=== PATIENT | female | born 2000 | race Caucasian/White ===

== ENCOUNTER 2021-06-18 15:07 | Emergency (ER) | payer SELFPAY | END 2021-06-18 16:06 | disposition left against medical advice (07) | LOC: HO.ED 16:06 | PROVIDERS: Emergency Provider Emergency Medicine | DX: R21 Rash and other nonspecific skin eruption (principal) ==

== ENCOUNTER 2022-05-27 12:30 | Emergency (ER) | payer OTHER, SELFPAY ==
[2022-05-27 12:33] VITALS: BP 129/83; PULSE 111; RESP 18; TEMP 36.9; O2SAT 98; BMI 36.3
[2022-05-27 12:53] LABS: MANUAL DIFF FLAG NO
[2022-05-27 12:57] LABS: Basophils Absolute Auto 0.1 X10*3/uL (0.0-0.2); Basophils Percent Auto 0.3 % (0-2); Eosinophils Percent Auto 0.1 % (0-4); Hematocrit 40.3 % (37.0-47.0); Hemoglobin 13.4 g/dl (12.0-16.0); Imm Gran Abs Auto 0.05 X10*3/uL (0.00-0.03); Imm Gran Pct Auto 0.3 % (0.0-0.4); Lymphocytes Absolute Auto 1.7 X10*3/uL (1.2-4.9); Lymphocytes Percent Auto 10.5 % (20-40); Mean Corpuscular HGB Conc 33.3 g/dl (31.0-35.0); Mean Corpuscular Hemoglobin 28.9 pg (27.0-33.0); Mean Platelet Volume 10.3 fL (9.4-12.3); Monocytes Absolute Auto 0.8 X10*3/uL (0.1-1.2); Monocytes Percent Auto 4.8 % (2-11); Neutrophils Absolute Auto 13.8 x10*3/uL (2.0-8.3); Platelet Count 350 X10*3/uL (160-400); Red Blood Count 4.63 X10*6/uL (4.20-5.50); White Blood Count 16.4 X10*3/uL (4.8-10.8)
[2022-05-27 12:59] LABS: Appearance Urine Clear; Color Urine Yellow; Glucose Urine UA Negative (Negative); Leukocyte Esterase Urine Negative (Negative); Nitrite Urine Negative (Negative); PH 5.5 (5.0-9.0); Specific Gravity - Urine 1.025 (1.005-1.025); Urine Blood Trace (Negative); Urine Ketones Negative (Negative); Urine Protein Negative (Neg-Trace)
[2022-05-27 13:01] LABS: Bacteria Urine None Seen (None Seen); Hyaline Casts Urine 0-2 /LPF (0-2); Squamous Epithelial Cell Urine 0-2 /HPF (0-2); WBC Urine 0-5 /HPF (0-5)
[2022-05-27 13:02] LABS: UPreg QC Valid YES; Urine Pregnancy NEGATIVE (NEGATIVE)
[2022-05-27 13:22] LABS: Anion Gap 16 (12-20); Blood Urea Nitrogen 9 mg/dL (9-16); Calcium 9.6 mg/dL (8.4-10.2); Carbon Dioxide 21 mmol/L (22-29); Chloride 106 mmol/L (96-108); Estimated Glomerular Filt Rate > 60; Glucose Random 103 mg/dL (60-115); Potassium 4.1 mmol/L (3.3-5.1); Sodium 139 mmol/L (135-145)
== END 2022-05-27 15:33 | disposition left against medical advice (07) ==
LOC: HO.ED 15:31
PROVIDERS: Emergency Provider Emergency Medicine
DX: R10.11 Right upper quadrant pain (principal); Z79.899 Other long term (current) drug therapy
CPT/HCPCS: 36415; 80048; 81001; 81025; 85025; 99282; 99283

== ENCOUNTER 2024-01-31 18:19 | Inpatient (IN) | payer OTHER, SELFPAY ==
--- NOTE | 2024-01-31 18:41 | ECG_ITS ---
Test Reason : OVERDOSE Blood Pressure : / mmHG Vent. Rate : 090 BPM Atrial Rate : 090 BPM P-R Int : 130 ms QRS Dur : 072 ms QT Int : 354 ms P-R-T Axes : 023 021 013 degrees QTc Int : 433 ms Normal sinus rhythm Normal ECG No previous ECGs available Referred By: Miky Cuevas Electronically Signed By:Todd Matt
[2024-01-31 19:17] VITALS: BP 126/76; BP 128/65; PULSE 120; PULSE 98; RESP 16; TEMP 37.2; O2SAT 96; O2SAT 98; BMI 37.4
[2024-01-31 19:27] LABS: MANUAL DIFF FLAG NO
--- NOTE | 2024-01-31 19:30 | PC.NURSE ---
pt difficult stick 2x attempt for iv unable to. charge gang weigher tavia aware and attempting.
[2024-01-31 19:32] LABS: Basophils Percent Auto 0.3 % (0-2); Eosinophils Percent Auto 0.1 % (0-4); Hematocrit 35.7 % (37.0-47.0); Hemoglobin 12.3 g/dl (12.0-16.0); Imm Gran Abs Auto 0.04 X10*3/uL (0.00-0.03); Imm Gran Pct Auto 0.4 % (0.0-0.4); Lymphocytes Absolute Auto 2.5 X10*3/uL (1.2-4.9); Lymphocytes Percent Auto 23.2 % (20-40); Mean Corpuscular HGB Conc 34.5 g/dl (31.0-35.0); Mean Corpuscular Hemoglobin 30.5 pg (27.0-33.0); Mean Corpuscular Volume 88.6 fL (80.0-98.0); Mean Platelet Volume 10.4 fL (9.4-12.3); Monocytes Absolute Auto 0.6 X10*3/uL (0.1-1.2); Monocytes Percent Auto 5.1 % (2-11); Neutrophils Absolute Auto 7.7 x10*3/uL (2.0-8.3); Neutrophils Percent Auto 70.9 % (45-73); Platelet Count 331 X10*3/uL (160-400); Red Blood Count 4.03 X10*6/uL (4.20-5.50); Red Cell Distribution Width 12.5 % (11.0-16.0); White Blood Count 10.9 X10*3/uL (4.8-10.8)
[2024-01-31 19:38] LABS: Prothrombin Time 12.2 SEC (11.1-13.3)
[2024-01-31 19:41] LABS: Partial Thromboplastin Time 28.4 SEC (26.0-36.8)
--- NOTE | 2024-01-31 19:41 | ED_ITS ---
HPI - General Adult General Chief complaint: Overdose Stated complaint: sect 12. tylenol od,unk amt.25 500mg pills missing Time Seen by Provider: 01/31/24 18:36 Source: patient Mode of arrival: ambulatory Limitations: no limitations History of Present Illness HPI narrative: 23-year-old female with past medical history of autism spectrum, and depression presents to ED for possibility of taking 45 pills of 500 mg acetaminophen. Mother states this was between 4 and 5 p.m. mother states patient had argument with boyfriend some mother to boyfriend out the house and when she walked back into saw open Tylenol bottle ont the ground with a bottle of water. Patient then told mother she was trying to kill herself while taking Tylenol. Related Data Home Medications ?Medication ?Instructions ?Recorded ?Confirmed No Known Home Meds 02/01/24 02/01/24 Allergies Allergy/AdvReac Type Severity Reaction Status Date / Time No Known Allergies Allergy Verified 01/31/24 19:21 Review of Systems 2 Review of Systems: Tylenol overdose Yes all other systems are reviewed and are negative [facility] Social History Social History Household Members: Family Housing: House Do you presently have visiting nurse or other home services: No Patient Tobacco Use Status: Never used Tobacco Smoked in Last 30 Days: No Second Hand Smoke Exposure: No Use of substances other than those prescribed or required for medical reasons: No Currently Displaying Signs/Symptoms of Drug Intoxication Withdrawal: No Any prior treatment program specific to substance use: No Have you been hit, kicked, punched, or otherwise hurt by someone within the past year? If so, by whom?: No Do you feel safe in your current relationship?: Yes Is there a partner from a previous relationship who is making you feel unsafe now?: No Are you made to feel afraid or neglected: No Advance Directives: No Advance Directives Information Provided: No Do you have thoughts of harming others: Constant Do you have a plan to hurt others: Clear Recently lost weight without trying: No Eating poorly because of decreased appetite: No Nutrition Risks: No Nutritional Risk Patient : No : No Poor oral hygiene: No Physical Exam ED Vital Signs: Vital Signs - 24 hr 02/01/24 10:15 02/01/24 10:59 Temperature 98.2 F 97.8 F Pulse Rate 96 101 H Respiratory Rate 19 19 Blood Pressure 94/55 L 93/60 Pulse Oximetry 96 98 Oxygen Delivery Method Room Air Room Air BMI result Body Mass Index 37.4 Const General: cooperative, healthy appearing, comfortable, no acute distress, well developed, alert, awake and Physically active Orientation/consciousness: oriented to person, oriented to place, oriented to time and patient oriented x3 HENMT Head: Yes normal to inspection, Yes No palpable skull fracture present, Yes normocephalic and Yes atraumatic Eyes General: appearance normal, both eyes and all related structures Neck Neck: Yes normal visual inspection, Yes full ROM, Yes no lymphadenopathy, Yes no meningeal signs, Yes trachea midline, Yes supple, No anterior neck swelling and No tender Chest Chest palpation & inspection: normal inspection of the chest and normal palpation of entire chest wall Resp Effort & Inspection: normal respiratory effort and able to speak in complete sentences Auscultation: clear to auscultation bilaterally Cardio Jugular venous distension: no JVD Heart sounds: S1 normal heart sound present and S2 normal heart sound present GI Inspection: Yes normal to inspection Palpation (GI): Soft to palpation, not firm, nontender, no guarding and not rigid General: No CVA tenderness and Yes no CVA tenderness Back/Spine/Pelvis Back: no CVA tenderness, No CVA tenderness and No back tenderness Skin General skin exam: no rashes or lesions noted, elasticity normal and turgor normal Neuro General: oriented to person, oriented to place, oriented to time, patient oriented x3, gait normal, tone normal, moves all extremities, Normal light touch and pain sensation, no meningeal signs, no focal motor deficits, CN's II-XI intact bilaterally and normal sensation to monofilament Extrem General: Yes normal to inspection, Yes full ROM and Yes capillary refill normal Psych Appearance: grossly normal, well kempt and not disheveled Medications Administered Generic Name Dose Route Start Last Admin Trade Name Freq PRN Reason Stop Dose Admin Hydroxyzine HCl 25 mg 02/01/24 14:32 02/01/24 21:36 Hydroxyzine Hcl 25 Mg Tablet PO 25 mg Q6H PRN Administration Anxiety Lorazepam 1 mg 02/01/24 16:31 02/01/24 23:44 Lorazepam 1 Mg Tablet PO 1 mg Q6H PRN Administration Anxiety Trazodone HCl 50 mg 02/01/24 14:32 02/01/24 22:50 Trazodone Hcl 50 Mg Tablet PO 50 mg BEDTIME MRX1 PRN Administration Insomnia Discontinued Medications Generic Name Dose Route Start Last Admin Trade Name Ankushq PRN Reason Stop Dose Admin Charcoal 50 gm 01/31/24 19:06 01/31/24 19:45 Activated Charcoal 50 Gm/240 Ml Oral.Susp PO 01/31/24 19:07 50 gm ONCE ONE Administration Sodium Chloride 1,000 mls @ 999 mls/hr 01/31/24 18:45 01/31/24 22:39 Ns IV 01/31/24 19:45 Infused .Q1H1M STA Infusion Lorazepam 2 mg 02/01/24 00:07 02/01/24 00:18 Lorazepam 1 Mg Tablet PO 02/01/24 00:08 2 mg ONCE ONE Administration Medical Decision Making Medical Decision Making MDM Narrative: 23-year-old female brought to ED for suspected ingestion of 25 pills of 500 mg of Tylenol. Patient is alert oriented x3 not baseline. Mother states ingestion between 16:00 and 17:00. Patient herself not really forthcoming. Poison control was called and they recommend labs EKG and starting activated charcoal. They recommend repeat Tylenol dose at 21:00. Recommend started acestylein, but covering attending Dr. Plunkett recommend waiting for the 21:00 dose. Patient presently drinking charcoal. 21: 10: Patient's Tylenol level 20 which is decreasing. Initial Tylenol level was 41. No need to start acystelen. Will order repeat Rikki level at 2;00am as per poison control 3:44am: Patient's Tylenol level less than 3. Repeat EKG normal. Patient medically cleared. Patient is seen by care team consulted Sarah who states patient is a bed search inpatient Differential Diagnosis Differential Diagnoses: The differential diagnosis associated with the presentation includes (tyelnol overdose) Admission/Observation Consideration of admission/observation: Escalation of care including admission/observation considered Consult Healthcare Provider Management of the patient was discussed with: Rn Liaison (Care Team Azael) Lab Data MDM Lab Attestation statement: I reviewed the patient's lab results. 01/31/24 19:23 02/01/24 13:20 Labs: Lab Results 01/31/24 01/31/24 02/01/24 Range/Units 19:23 21:10 02:34 WBC 10.9 H (4.8-10.8) X10*3/uL RBC 4.03 L (4.20-5.50) X10*6/uL Hgb 12.3 (12.0-16.0) g/dl Hct 35.7 L (37.0-47.0) % MCV 88.6 (80.0-98.0) fL MCH 30.5 (27.0-33.0) pg MCHC 34.5 (31.0-35.0) g/dl RDW 12.5 (11.0-16.0) % Plt Count 331 (160-400) X10*3/uL MPV 10.4 (9.4-12.3) fL Immature Gran % (Auto) 0.4 (0.0-0.4) % Neut % (Auto) 70.9 (45-73) % Lymph % (Auto) 23.2 (20-40) % [place] % (Auto) 5.1 (2-11) % Eos % (Auto) 0.1 (0-4) % Baso % (Auto) 0.3 (0-2) % Lymph # (Auto) 2.5 (1.2-4.9) X10*3/uL [place] # (Auto) 0.6 (0.1-1.2) X10*3/uL Eos # (Auto) 0.0 (0.0-0.4) X10*3/uL Baso # (Auto) 0.0 (0.0-0.2) X10*3/uL Abs Immat Gran (auto) 0.04 H (0.00-0.03) X10*3/uL Absolute Neuts (auto) 7.7 (2.0-8.3) x10*3/uL Absolute Nucleated RBC 0.000 (0.0-0.012) X10*3/uL Nucleated RBC % (auto) 0.0 (0.0-0.2) /100WBC PT 12.2 (11.1-13.3) SEC INR 1.0 (0.9-1.1) APTT 28.4 (26.0-36.8) SEC Sodium 140 (135-145) mmol/L Potassium 3.9 (3.3-5.1) mmol/L Chloride 107 (96-108) mmol/L Carbon Dioxide 21 L (22-29) mmol/L Anion Gap 16 (12-20) BUN 6 L (9-16) mg/dL Creatinine 0.72 (0.5-1.4) mg/dL Estim Creat Clear Calc 148.8 Estimated GFR > 60 Random Glucose 85 (60-115) mg/dL Calcium 9.8 (8.4-10.2) mg/dL Magnesium 1.9 (1.6-2.6) mg/dL Total Bilirubin 0.3 (0.0-1.0) mg/dL AST 16 (5-31) U/L ALT 20 (0-31) U/L Alkaline Phosphatase 51 (39-117) U/L Total Protein 7.5 (6.5-8.0) g/dL Albumin 4.4 (3.5-5.0) g/dL Beta HCG, Quant < 2 mIU/mL Urine Color Yellow Urine Appearance Clear Urine pH 6.5 (5.0-9.0) Ur Specific [place] <= 1.005 (1.005-1.025) Urine Protein Negative (Neg-Trace) mg/dL Urine Glucose (UA) Negative (Negative) mg/dL Urine Ketones Negative (Negative) mg/dL Urine Blood Negative (Negative) Urine Nitrite Negative (Negative) Ur Leukocyte Esterase Negative (Negative) Salicylates < 5.0 L (15-30) mg/dL Urine Opiates Screen Not Detected (Not Detect) Ur Buprenorphine Scrn Not Detected (Not Detect) ng/mL Ur Oxycodone Screen Not Detected (Not Detect) ng/mL Urine Methadone Screen Not Detected (Not Detect) ng/mL Urine Fentanyl Screen Not Detected (Not Detect) Acetaminophen 41 H 20 < 3 (<30) mcg/mL Ur Barbiturates Screen Not Detected (Not Detect) Ur Phencyclidine Scrn Not Detected (Not Detect) Ur Amphetamines Screen Not Detected (Not Detect) U Benzodiazepines Scrn Not Detected (Not Detect) Urine Cocaine Screen Not Detected (Not Detect) U Marijuana (THC) Screen Not Detected (Not Detect) Ethyl Alcohol < 10 mg/dL 02/01/24 Range/Units 13:20 WBC (4.8-10.8) X10*3/uL RBC (4.20-5.50) X10*6/uL Hgb (12.0-16.0) g/dl Hct (37.0-47.0) % MCV (80.0-98.0) fL MCH (27.0-33.0) pg MCHC (31.0-35.0) g/dl RDW (11.0-16.0) % Plt Count (160-400) X10*3/uL MPV (9.4-12.3) fL Immature Gran % (Auto) (0.0-0.4) % Neut % (Auto) (45-73) % Lymph % (Auto) (20-40) % [place] % (Auto) (2-11) % Eos % (Auto) (0-4) % Baso % (Auto) (0-2) % Lymph # (Auto) (1.2-4.9) X10*3/uL [place] # (Auto) (0.1-1.2) X10*3/uL Eos # (Auto) (0.0-0.4) X10*3/uL Baso # (Auto) (0.0-0.2) X10*3/uL Abs Immat Gran (auto) (0.00-0.03) X10*3/uL Absolute Neuts (auto) (2.0-8.3) x10*3/uL Absolute Nucleated RBC (0.0-0.012) X10*3/uL Nucleated RBC % (auto) (0.0-0.2) /100WBC PT (11.1-13.3) SEC INR (0.9-1.1) APTT (26.0-36.8) SEC Sodium 140 (135-145) mmol/L Potassium 3.6 (3.3-5.1) mmol/L Chloride 108 (96-108) mmol/L Carbon Dioxide 22 (22-29) mmol/L Anion Gap 14 (12-20) BUN 3 L (9-16) mg/dL Creatinine 0.72 (0.5-1.4) mg/dL Estim Creat Clear Calc 148.8 Estimated GFR > 60 Random Glucose 89 (60-115) mg/dL Calcium 9.7 (8.4-10.2) mg/dL Magnesium (1.6-2.6) mg/dL Total Bilirubin 0.3 (0.0-1.0) mg/dL AST 14 (5-31) U/L ALT 18 (0-31) U/L Alkaline Phosphatase 48 (39-117) U/L Total Protein 7.3 (6.5-8.0) g/dL Albumin 4.1 (3.5-5.0) g/dL Beta HCG, Quant mIU/mL Urine Color Urine Appearance Urine pH (5.0-9.0) Ur Specific [place] (1.005-1.025) Urine Protein (Neg-Trace) mg/dL Urine Glucose (UA) (Negative) mg/dL Urine Ketones (Negative) mg/dL Urine Blood (Negative) Urine Nitrite (Negative) Ur Leukocyte Esterase (Negative) Salicylates (15-30) mg/dL Urine Opiates Screen (Not Detect) Ur Buprenorphine Scrn (Not Detect) ng/mL Ur Oxycodone Screen (Not Detect) ng/mL Urine Methadone Screen (Not Detect) ng/mL Urine Fentanyl Screen (Not Detect) Acetaminophen (<30) mcg/mL Ur Barbiturates Screen (Not Detect) Ur Phencyclidine Scrn (Not Detect) Ur Amphetamines Screen (Not Detect) U Benzodiazepines Scrn (Not Detect) Urine Cocaine Screen (Not Detect) U Marijuana (THC) Screen (Not Detect) Ethyl Alcohol mg/dL ABG Data Attestation ABG: I personally reviewed and interpreted this ABG as follows: Independent Historian Clinical information obtained from an independent historian. History obtained from or confirmed by: Other (patient) External Record Review External record reviewed: Other (prior visits) Critical Care Time Critical Care Time Critical Care Time: Yes Total Critical Care Time: 60 Attestation: Spoke with [place] control. Patietn given charcoal to drink. IV fluids ordered. Patient placed on monitor. EKG ordered. labs repeated Discharge Plan Discharge Clinical Impression: Overdose Patient Disposition: Still a Patient Discharge Date/Time: 02/01/24 15:04
[2024-01-31] MEDS: Activated charcoaL 50 GM/240 ML ORAL.SUSP PO (19:45)
[2024-01-31 19:48] LABS: Acetaminophen LAB 41 mcg/mL (<30); Salicylate < 5.0 mg/dL (15-30)
[2024-01-31] MEDS: 0.9 % Sodium Chloride 1,000 ML 999 ML IV (19:55)
[2024-01-31 19:57] LABS: Alanine Aminotransferase 20 U/L (0-31); Albumin Level 4.4 g/dL (3.5-5.0); Alkaline Phosphatase 51 U/L (39-117); Anion Gap 16 (12-20); Aspartate Amino Transferase 16 U/L (5-31); Bilirubin Total 0.3 mg/dL (0.0-1.0); Blood Urea Nitrogen 6 mg/dL (9-16); Calcium 9.8 mg/dL (8.4-10.2); Carbon Dioxide 21 mmol/L (22-29); Chloride 107 mmol/L (96-108); Creatinine Clr Calc Pharmacy 148.8; Estimated Glomerular Filt Rate > 60; Ethanol < 10 mg/dL; Glucose Random 85 mg/dL (60-115); HCG Quantitative < 2 mIU/mL; Magnesium 1.9 mg/dL (1.6-2.6); Potassium 3.9 mmol/L (3.3-5.1); Sodium 140 mmol/L (135-145); Total Protein 7.5 g/dL (6.5-8.0)
--- NOTE | 2024-01-31 19:59 | PC.NURSE ---
iv established. ivf infusing. pt drinking charcoal po per nov. pt is axox4 calm/cooperative at this time. pt previously changed over to hospital attire by previous RN and security; belongings locked up in pod. poison control called by Miky LIAO. pt denies n/v/d/abd pain/cp/sob at this time. 1st ekg obtained reviewed by . 1:1 sitter at bedside.
[2024-01-31 21:18] LABS: Appearance Urine Clear; Color Urine Yellow; Glucose Urine UA Negative (Negative); Leukocyte Esterase Urine Negative (Negative); Nitrite Urine Negative (Negative); PH 6.5 (5.0-9.0); Specific Gravity - Urine <= 1.005 (1.005-1.025); Urine Blood Negative (Negative); Urine Ketones Negative (Negative); Urine Protein Negative (Neg-Trace)
[2024-01-31 21:27] VITALS: BP 110/70; PULSE 94; RESP 18; TEMP 36.9; O2SAT 98
[2024-01-31 21:31] LABS: Amphetamine Screen Urine Not Detected (Not Detect); Barbiturates, Urine Not Detected (Not Detect); Benzodiazepines Screen Urine Not Detected (Not Detect); Buprenorphine Scr Not Detected (Not Detect); Cannabinoid Screen Urine Not Detected (Not Detect); Cocaine Screen Urine Not Detected (Not Detect); Fentanyl, urine Not Detected (Not Detect); Methadone Screen, Urine Not Detected (Not Detect); Opiate Screen Urine Not Detected (Not Detect); Oxycodone Screen Urine Not Detected (Not Detect); Phencyclidine Screen Urine Not Detected (Not Detect)
--- NOTE | 2024-01-31 21:34 | PC.NURSE ---
pt placed into room 8 from hallway. placed on heart montior. nsr. pt denies any complaints no changes from previous assessment by this RN. 1: 1sitter at bedside.
[2024-01-31 21:36] LABS: Acetaminophen LAB 20 mcg/mL (<30)
--- NOTE | 2024-01-31 21:49 | ECG_ITS ---
Test Reason : REPEAT Blood Pressure : / mmHG Vent. Rate : 096 BPM Atrial Rate : 096 BPM P-R Int : 126 ms QRS Dur : 074 ms QT Int : 348 ms P-R-T Axes : 016 021 014 degrees QTc Int : 439 ms Normal sinus rhythm Normal ECG When compared with ECG of 31-JAN-2024 19:49, No significant change was found Referred By: Miky Cuevas Electronically Signed By:Todd Matt
--- NOTE | 2024-01-31 22:35 | PC.NURSE ---
per poison control continue ekgs q4-6 hour until medically cleared. repeat tylenol level and ekg at 0200. poison control states to defer on treatment at this time.
--- NOTE | 2024-01-31 23:55 | PC.NURSE ---
pt previously requested mom stay with patient as she felt anxious without mom at bedside. pt remained calm/cooperative, conversating with mom/watching tv. at this time pt is tearful and reporting she cant control her anxiety. mom and patient both express need for medication as pt not responding to verbal reassurance. Miky LIAO aware.
[2024-02-01] MEDS: LORazepam 1 MG TABLET 2 MG PO (00:18)
--- NOTE | 2024-02-01 02:00 | ECG_ITS ---
Test Reason : TYLENOL OD Blood Pressure : / mmHG Vent. Rate : 086 BPM Atrial Rate : 086 BPM P-R Int : 116 ms QRS Dur : 076 ms QT Int : 376 ms P-R-T Axes : 029 043 012 degrees QTc Int : 449 ms Normal sinus rhythm Normal ECG When compared with ECG of 31-JAN-2024 21:51, T wave inversion no longer evident in Anterior leads Referred By: Miky Cuevas Electronically Signed By:Todd Matt
[2024-02-01 03:12] LABS: Acetaminophen LAB < 3 mcg/mL (<30)
[2024-02-01 06:18] VITALS: BP 111/50; PULSE 106; RESP 17; TEMP 36.6; O2SAT 97
--- NOTE | 2024-02-01 06:21 | PC.NURSE ---
pt seemed to be experiencing increased agitation/anxiety with mom at bedside. mom and this RN spoke and agreed for mom to go home as patient was requesting moms phone/to text boyfriend,etc and patient threw cup of ice at mom. after mom left patient is resting comfortably in stretcher with eyes closed. nad. resp even and unlabored. 1:1 sitter at bedside.
[2024-02-01 08:02] VITALS: BP 105/57; PULSE 95; RESP 14; TEMP 36.4; O2SAT 98
--- NOTE | 2024-02-01 08:09 | PC.NURSE ---
PT IS SLEEPING RESP EVEN AND UNLABORED. PT REFUSED BREAKFAST AT THIS TIME. PT DENIES ANY PAIN/DISC. 1:1 SITTER AT BEDSIDE. PT DENIES ANY SI/HI/HALLUCINATION. WILL CONTINUE TO MONITOR.
--- NOTE | 2024-02-01 08:47 | PC.NURSE ---
THIS RN ATTEMPTED TO RETURN PT'S MOTHER (IRA, ) HER VOICEMAIL WAS FULL. UNABLE TO LEAVE A MESSAGE.
[2024-02-01 10:15] VITALS: BP 94/55; PULSE 96; RESP 19; TEMP 36.8; O2SAT 96
[2024-02-01 10:59] VITALS: BP 93/60; PULSE 101; RESP 19; TEMP 36.6; O2SAT 98
--- NOTE | 2024-02-01 10:59 | PC.NURSE ---
This RN assumed care of patient, patient resting quietly in bed, respirations equal and unlabored, skin dry and intact. patient sitter at bedside
--- NOTE | 2024-02-01 11:10 | PC.NURSE ---
patient requested for this RN to call parent, attempted to call, voicemail full. patient aware of attempt.
--- NOTE | 2024-02-01 12:26 | PC.NURSE ---
patient allowed to get phone numbers from phone, patient phone placed back in locker.
--- NOTE | 2024-02-01 13:23 | PC.NURSE ---
patients mom called, left alternative phone number [phone]. patient mom given update
[2024-02-01 13:57] LABS: Alanine Aminotransferase 18 U/L (0-31); Albumin Level 4.1 g/dL (3.5-5.0); Alkaline Phosphatase 48 U/L (39-117); Anion Gap 14 (12-20); Aspartate Amino Transferase 14 U/L (5-31); Blood Urea Nitrogen 3 mg/dL (9-16); Calcium 9.7 mg/dL (8.4-10.2); Carbon Dioxide 22 mmol/L (22-29); Chloride 108 mmol/L (96-108); Creatinine Clr Calc Pharmacy 148.8; Estimated Glomerular Filt Rate > 60; Glucose Random 89 mg/dL (60-115); Potassium 3.6 mmol/L (3.3-5.1); Sodium 140 mmol/L (135-145); Total Protein 7.3 g/dL (6.5-8.0)
[2024-02-01 14:19] LABS: Bilirubin Total 0.3 mg/dL (0.0-1.0)
[2024-02-01 15:20] VITALS: BMI 37.2
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
--- NOTE | 2024-02-01 16:26 | PC.NURSE ---
Evonne was admitted from the ED after presenting post Tylenol OD in the context of a recent breakup. Per mothers report she took 25 Tylenol and there was an empty pill bottle on the floor. Evonne now reports this was not a suicide attempt and she only took 7 Tylenol and sometimes I take 3 just for a headache so I don't understand what the big deal is . Poor insight into event and guarded discussing the precipitating factors. Skin assessment WNL, some bruising bilateral to arms from IV and blood draws in the ED. Evonne did not sign consents for her mother and does not want information shared with her unless Evonne approves it beforehand. This is her first hospitalization and she is presenting as very anxious. No substance abuse alcohol or tobacco use. Eovnne signed a CV with the provider and once it was accepted she signed a 3-day notice which will be up Saturday 02/03. Evonne denies any current SI. Denies HX of self harm or suicidal ideation or attempts. Denies HI/AVH. No current medications. No current providers for PCP, or psychiatric care.
[2024-02-01 20:00] VITALS: BP 123/80; PULSE 112; RESP 16; TEMP 36.5; O2SAT 99
[2024-02-01] MEDS: traZODone HCL 50 MG TABLET PO ×2 (21:36→22:50)
[2024-02-01] MEDS: hydrOXYzine HCL 25 MG TABLET PO (21:36)
[2024-02-01] MEDS: LORazepam 1 MG TABLET PO (23:44)
[2024-02-02 08:00] VITALS: BP 106/58; PULSE 89; RESP 14; TEMP 36.5; O2SAT 96
--- NOTE | 2024-02-02 09:56 | HO.PSYCHPN ---
Subjective Subjective Date of Service: 02/02/24 Reason For Visit: tylenol overdose Subjective Notes: 3 Day Interim History: Reviewed with Dr. Bowser. Pt reports feeling fine today; guarded, difficult to engage during assessment. Pt stated, I'm not depressed or anxious. I got into an argument with my boyfriend, I don't know about what. The anxiety made me take the Tylenol. It was impulsive. I wanted my anxiety to stop and it's the only thing I had. I wasn't trying to kill myself . Pt reports she is open to starting medication for her impulsively and anxiety. Discussed risks/benefits of Guanfacine; educational handout given to patient. Pt denies SI/HI/VH/AH. Pt reports she will consider meeting with outpatient therapist. Medication Compliance: Yes Side effects from medications: No Attending Groups: No Review of Systems Constitutional: Reports as per HPI Eyes: Reports as per HPI Reports as per HPI Cardiovascular: Reports as per HPI Respiratory: Reports as per HPI Gastrointestinal: Reports as per HPI Genitourinary: Reports as per HPI Musculoskeletal: Reports as per HPI Skin/Breast: Reports as per HPI Reports as per HPI Psychiatric: Reports as per HPI Endocrine: Reports as per HPI Hematologic/Lymphatic: Reports as per HPI Allergic/Immunologic: Reports as per HPI Mental Status Exam Mental Status Exam Narrative: Pt is alert and oriented; behavior is calm, guarded, difficult to engage; dressed in casual attire; mood is described as fine ; eye contact appropriate; Speech is normal rate, volume and prosody and not pressured; thought process is organized; Thought content is on discharge; denies SI/HI/VH/AH. Diagnostics Vital Signs (24Hr): Vital Signs - 24 hr 02/01/24 10:15 02/01/24 10:59 02/01/24 20:00 Temperature 98.2 F 97.8 F 97.7 F Pulse Rate 96 101 H 112 H Respiratory Rate 19 19 16 Blood Pressure 94/55 L 93/60 123/80 Pulse Oximetry 96 98 99 Oxygen Delivery Method Room Air Room Air Room Air 02/02/24 08:00 Temperature 97.7 F Pulse Rate 89 Respiratory Rate 14 Blood Pressure 106/58 L Pulse Oximetry 96 Oxygen Delivery Method Room Air BMI result Body Mass Index 37.2 Labs 02/02/24 11:56 05/08/24 11:56 Labs: Laboratory Results - last 48 hr 01/31/24 01/31/24 02/01/24 19:23 21:10 02:34 WBC 10.9 H RBC 4.03 L Hgb 12.3 Hct 35.7 L MCV 88.6 MCH 30.5 MCHC 34.5 RDW 12.5 Plt Count 331 MPV 10.4 Immature Gran % (Auto) 0.4 Neut % (Auto) 70.9 Lymph % (Auto) 23.2 [place] % (Auto) 5.1 Eos % (Auto) 0.1 Baso % (Auto) 0.3 Lymph # (Auto) 2.5 [place] # (Auto) 0.6 Eos # (Auto) 0.0 Baso # (Auto) 0.0 Abs Immat Gran (auto) 0.04 H Absolute Neuts (auto) 7.7 Absolute Nucleated RBC 0.000 Nucleated RBC % (auto) 0.0 PT 12.2 INR 1.0 APTT 28.4 Sodium 140 Potassium 3.9 Chloride 107 Carbon Dioxide 21 L Anion Gap 16 BUN 6 L Creatinine 0.72 Estim Creat Clear Calc 148.8 Estimated GFR > 60 Random Glucose 85 Calcium 9.8 Magnesium 1.9 Total Bilirubin 0.3 AST 16 ALT 20 Alkaline Phosphatase 51 Total Protein 7.5 Albumin 4.4 Beta HCG, Quant < 2 Urine Color Yellow Urine Appearance Clear Urine pH 6.5 Ur Specific [place] <= 1.005 Urine Protein Negative Urine Glucose (UA) Negative Urine Ketones Negative Urine Blood Negative Urine Nitrite Negative Ur Leukocyte Esterase Negative Salicylates < 5.0 L Urine Opiates Screen Not Detected Ur Buprenorphine Scrn Not Detected Ur Oxycodone Screen Not Detected Urine Methadone Screen Not Detected Urine Fentanyl Screen Not Detected Acetaminophen 41 H 20 < 3 Ur Barbiturates Screen Not Detected Ur Phencyclidine Scrn Not Detected Ur Amphetamines Screen Not Detected U Benzodiazepines Scrn Not Detected Urine Cocaine Screen Not Detected U Marijuana (THC) Screen Not Detected Ethyl Alcohol < 10 02/01/24 13:20 WBC RBC Hgb Hct MCV MCH MCHC RDW Plt Count MPV Immature Gran % (Auto) Neut % (Auto) Lymph % (Auto) [place] % (Auto) Eos % (Auto) Baso % (Auto) Lymph # (Auto) [place] # (Auto) Eos # (Auto) Baso # (Auto) Abs Immat Gran (auto) Absolute Neuts (auto) Absolute Nucleated RBC Nucleated RBC % (auto) PT INR APTT Sodium 140 Potassium 3.6 Chloride 108 Carbon Dioxide 22 Anion Gap 14 BUN 3 L Creatinine 0.72 Estim Creat Clear Calc 148.8 Estimated GFR > 60 Random Glucose 89 Calcium 9.7 Magnesium Total Bilirubin 0.3 AST 14 ALT 18 Alkaline Phosphatase 48 Total Protein 7.3 Albumin 4.1 Beta HCG, Quant Urine Color Urine Appearance Urine pH Ur Specific [place] Urine Protein Urine Glucose (UA) Urine Ketones Urine Blood Urine Nitrite Ur Leukocyte Esterase Salicylates Urine Opiates Screen Ur Buprenorphine Scrn Ur Oxycodone Screen Urine Methadone Screen Urine Fentanyl Screen Acetaminophen Ur Barbiturates Screen Ur Phencyclidine Scrn Ur Amphetamines Screen U Benzodiazepines Scrn Urine Cocaine Screen U Marijuana (THC) Screen Ethyl Alcohol Medications Medications Current Medications Al Hydroxide/Mg Hydroxide (Magnesium Hydrox/Alum Hydrox 30 Ml Oral.Susp) 30 ml PO Q6H PRN PRN Reason: Heartburn/Nausea Hydroxyzine HCl (Hydroxyzine Hcl 25 Mg Tablet) 25 mg PO Q6H PRN PRN Reason: Anxiety Last Admin: 02/01/24 21:36 Dose: 25 mg Lorazepam (Lorazepam 1 Mg Tablet) 1 mg PO Q6H PRN PRN Reason: Anxiety Last Admin: 02/01/24 23:44 Dose: 1 mg Magnesium Hydroxide (Milk Of Magnesia 30 Ml Oral.Susp) 30 ml PO DAILY PRN PRN Reason: Constipation Trazodone HCl (Trazodone Hcl 50 Mg Tablet) 50 mg PO BEDTIME MRX1 PRN PRN Reason: Insomnia Last Admin: 02/01/24 22:50 Dose: 50 mg Allergies Allergies Allergy/AdvReac Type Severity Reaction Status Date / Time No Known Allergies Allergy Verified 01/31/24 19:21 Assessment & Plan Assessment & Plan (1) Overdose: Status: Acute Code(s): T50.901A - Poisoning by unspecified drugs, medicaments and biological substances, accidental (unintentional), initial encounter (2) Autism: Status: Acute Code(s): F84.0 - Autistic disorder (3) Depression: Status: Acute Code(s): F32.A - Depression, unspecified Plan admit to m3 cv 15 min checks collect collateral information prn meds ordered labs ordered for AM swallow test ordered (thickened liquids in Ed) connect with [facility] and [facility] discharge planning with team 02/01:Pt reports feeling fine today; guarded, difficult to engage during assessment. Pt stated, I'm not depressed or anxious. I got into an argument with my boyfriend, I don't know about what. The anxiety made me take the Tylenol. It was impulsive. I wanted my anxiety to stop and it's the only thing I had. I wasn't trying to kill myself . Pt reports she is open to starting medication for her impulsively and anxiety. Discussed risks/benefits of Guanfacine; educational handout given to patient. Pt denies SI/HI/VH/AH. Pt reports she will consider meeting with outpatient therapist. Start: Guanfacine 1mg PO bedtime Patient educated on: diagnosis, medication risk/benefits and therapeutic strategies Informed Consent: understands Reason for continued inpatient stay Substantial Risk for: med/psych decompensation Time Spent With Patient Time: Total time managing care of this patient today _20___ minutes.
[2024-02-02 12:08] LABS: MANUAL DIFF FLAG NO
[2024-02-02 12:10] LABS: Basophils Percent Auto 0.5 % (0-2); Eosinophils Percent Auto 0.5 % (0-4); Hematocrit 37.8 % (37.0-47.0); Hemoglobin 12.8 g/dl (12.0-16.0); Imm Gran Abs Auto 0.01 X10*3/uL (0.00-0.03); Imm Gran Pct Auto 0.2 % (0.0-0.4); Lymphocytes Absolute Auto 2.8 X10*3/uL (1.2-4.9); Lymphocytes Percent Auto 43.1 % (20-40); Mean Corpuscular HGB Conc 33.9 g/dl (31.0-35.0); Mean Corpuscular Hemoglobin 31.1 pg (27.0-33.0); Mean Corpuscular Volume 91.7 fL (80.0-98.0); Mean Platelet Volume 10.2 fL (9.4-12.3); Monocytes Absolute Auto 0.4 X10*3/uL (0.1-1.2); Monocytes Percent Auto 6.5 % (2-11); Neutrophils Absolute Auto 3.2 x10*3/uL (2.0-8.3); Neutrophils Percent Auto 49.2 % (45-73); Platelet Count 276 X10*3/uL (160-400); Red Blood Count 4.12 X10*6/uL (4.20-5.50); Red Cell Distribution Width 12.9 % (11.0-16.0); White Blood Count 6.5 X10*3/uL (4.8-10.8)
[2024-02-02 12:34] LABS: Alanine Aminotransferase 19 U/L (0-31); Albumin Level 4.1 g/dL (3.5-5.0); Alkaline Phosphatase 48 U/L (39-117); Anion Gap 13 (12-20); Aspartate Amino Transferase 17 U/L (5-31); Bilirubin Direct 0.2 mg/dL (0.0-0.5); Bilirubin Total 0.4 mg/dL (0.0-1.0); Blood Urea Nitrogen 6 mg/dL (9-16); Calcium 9.6 mg/dL (8.4-10.2); Carbon Dioxide 23 mmol/L (22-29); Chloride 108 mmol/L (96-108); Cholesterol 159 mg/dL (<200); Creatinine Clr Calc Pharmacy 154.9; Estimated Glomerular Filt Rate > 60; Glucose Fasting 82 mg/dL (60-99); HDL Cholesterol 43 mg/dL (>40); LDL Cholesterol Calculated 102 mg/dL (<100); Magnesium 2.1 mg/dL (1.6-2.6); Potassium 3.7 mmol/L (3.3-5.1); Sodium 140 mmol/L (135-145); Total Protein 7.1 g/dL (6.5-8.0); Triglycerides 72 mg/dL (<150)
--- NOTE | 2024-02-02 12:49 | PC.NURSE ---
Patient gave verbal consent to speak with mother regarding dropping off personal belongings.
[2024-02-02 12:50] LABS: Free T4 (Free Thyroxine) 1.03 ng/dL (0.71-1.85); Thyroid Stimulating Hormone 1.01 uIU/mL (0.32-4.0)
[2024-02-02 12:57] LABS: Folate 12.1 ng/mL (> or = 4.0); Vitamin B12 320 pg/mL (200-900)
--- NOTE | 2024-02-02 17:37 | MHC.SL.SWA ---
Risk of Aspiration Due to: None Dysphasia Diet Status: UPGRADE liquids Liquid Consistency and Strategies for Safe Swallow: Liquid Intake Recommendation: Thin Liquid Intake Strategies: Unrestricted Solid Food Consistency: Dietary Recommendations: Regular Oral Medication Intake: Whole with Liquid Please contact the pharmacy regarding appropriate crushable or liquid drug formulations that are available whenever modified delivery is recommended. Compensatory Strategies and Precautions to be Taken for Safe Swallow: Sitting Upright (90 deg) Supervision While Eating and Drinking for Safe Swallow: None Needed Recommendation for Speech: NA:Typical Evaluation Comment: Patient w/ typical evaluation and swallow WFL. Recommend unrestricted/unmodified diet and d/c from [facility] tx. Billing Supervisor Clinican/Clinical Fellow: No Supervisory Statement: I have reviewed and agree with the student/clinical fellow's documentation: N/A Speech Language Pathologist: Sarah Ordoñez M.A., CCC-[facility]
[2024-02-02 20:00] VITALS: BP 140/86; PULSE 100; RESP 18; TEMP 36.9; O2SAT 100
[2024-02-02] MEDS: traZODone HCL 50 MG TABLET PO ×2 (20:11→23:05)
[2024-02-02] MEDS: hydrOXYzine HCL 25 MG TABLET PO (20:11)
--- NOTE | 2024-02-03 10:13 | HO.PSYCHPN ---
Subjective Subjective Reason For Visit: tylenol overdose Diagnostics Vital Signs (24Hr): Vital Signs - 24 hr 02/02/24 20:00 Temperature 98.5 F Pulse Rate 100 Respiratory Rate 18 Blood Pressure 140/86 H Pulse Oximetry 100 Oxygen Delivery Method Room Air BMI result Body Mass Index 37.2 Labs 02/02/24 11:56 02/02/24 11:56 Labs: Laboratory Results - last 48 hr 02/01/24 02/02/24 13:20 11:56 WBC 6.5 RBC 4.12 L Hgb 12.8 Hct 37.8 MCV 91.7 MCH 31.1 MCHC 33.9 RDW 12.9 Plt Count 276 MPV 10.2 Immature Gran % (Auto) 0.2 Neut % (Auto) 49.2 Lymph % (Auto) 43.1 H [place] % (Auto) 6.5 Eos % (Auto) 0.5 Baso % (Auto) 0.5 Lymph # (Auto) 2.8 [place] # (Auto) 0.4 Eos # (Auto) 0.0 Baso # (Auto) 0.0 Abs Immat Gran (auto) 0.01 Absolute Neuts (auto) 3.2 Absolute Nucleated RBC 0.000 Nucleated RBC % (auto) 0.0 Sodium 140 140 Potassium 3.6 3.7 Chloride 108 108 Carbon Dioxide 22 23 Anion Gap 14 13 BUN 3 L 6 L Creatinine 0.72 0.69 Estim Creat Clear Calc 148.8 154.9 Estimated GFR > 60 > 60 Random Glucose 89 Fasting Glucose 82 Calcium 9.7 9.6 Magnesium 2.1 Total Bilirubin 0.3 0.4 Direct Bilirubin 0.2 AST 14 17 ALT 18 19 Alkaline Phosphatase 48 48 Total Protein 7.3 7.1 Albumin 4.1 4.1 Triglycerides 72 Cholesterol 159 LDL Cholesterol, Calc 102 H HDL Cholesterol 43 Vitamin B12 320 Folate 12.1 TSH 1.01 Free T4 1.03 Medications Medications Current Medications Al Hydroxide/Mg Hydroxide (Magnesium Hydrox/Alum Hydrox 30 Ml Oral.Susp) 30 ml PO Q6H PRN PRN Reason: Heartburn/Nausea Guanfacine HCl (Guanfacine Hcl Er 1 Mg Tab.Er.24h) 1 mg PO BEDTIME SARAN Last Admin: 02/02/24 21:52 Dose: Not Given Hydroxyzine HCl (Hydroxyzine Hcl 25 Mg Tablet) 25 mg PO Q6H PRN PRN Reason: Anxiety Last Admin: 02/02/24 20:11 Dose: 25 mg Magnesium Hydroxide (Milk Of Magnesia 30 Ml Oral.Susp) 30 ml PO DAILY PRN PRN Reason: Constipation Trazodone HCl (Trazodone Hcl 50 Mg Tablet) 50 mg PO BEDTIME MRX1 PRN PRN Reason: Insomnia Last Admin: 02/02/24 23:05 Dose: 50 mg Allergies Allergies Allergy/AdvReac Type Severity Reaction Status Date / Time No Known Allergies Allergy Verified 01/31/24 19:21 Assessment & Plan Assessment & Plan (1) Overdose: Status: Acute Code(s): T50.901A - Poisoning by unspecified drugs, medicaments and biological substances, accidental (unintentional), initial encounter (2) Autism: Status: Acute Code(s): F84.0 - Autistic disorder (3) Depression: Status: Acute Code(s): F32.A - Depression, unspecified Plan admit to m3 cv 15 min checks collect collateral information prn meds ordered labs ordered for AM swallow test ordered (thickened liquids in Ed) connect with [facility] and [facility] discharge planning with team 02/01:Pt reports feeling fine today; guarded, difficult to engage during assessment. Pt stated, I'm not depressed or anxious. I got into an argument with my boyfriend, I don't know about what. The anxiety made me take the Tylenol. It was impulsive. I wanted my anxiety to stop and it's the only thing I had. I wasn't trying to kill myself . Pt reports she is open to starting medication for her impulsively and anxiety. Discussed risks/benefits of Guanfacine; educational handout given to patient. Pt denies SI/HI/VH/AH. Pt reports she will consider meeting with outpatient therapist. Start: Guanfacine 1mg PO bedtime Time Spent With Patient Time: Total time managing care of this patient today ____ minutes.
--- NOTE | 2024-02-03 12:00 | PM.PSYDC ---
DS: Providers Provider Date of Service: 02/03/24 Date of admission: 02/01/24 14:51 Date of discharge: 02/03/24 Primary care physician: None Physician Admitting clinician: Sandra Flores Attending physician on admission: Solomon Bowser Attending physician on discharge: Solomon Bowser Discharging clinician: Mora Galindo DS: Diagnosis Discharge Diagnosis (1) Overdose: Status: Acute (2) Autism: Status: Acute (3) Depression: Status: Acute DS: Medications Discharge Medications Home Medications: Home Medications ?Medication ?Instructions ?Recorded ?Confirmed No Known Home Meds 02/01/24 02/01/24 Previous Rx's ?Medication ?Instructions ?Recorded guanfacine 1 mg tablet,extended 1 mg PO BEDTIME 14 days #14 tabs 02/03/24 release 24 hr Mental Status Exam Mental Status Exam Narrative: Pt is alert and oriented; behavior is cooperative and calm; dressed in casual attire; mood is described as good ; eye contact appropriate; Speech is normal rate, volume and prosody and not pressured; thought process is organized and goal directed; Thought content is on tx; otherwise pertinent to relevant topics and without any delusional content, paranoid ideations or grandiosity; denies SI/HI/VH/AH. Data Data Completed and Pending Completed studies during hospitalization [Text1]: 01/31/24 01/31/24 02/01/24 19:23 21:10 02:34 WBC 10.9 H RBC 4.03 L Hgb 12.3 Hct 35.7 L MCV 88.6 MCH 30.5 MCHC 34.5 RDW 12.5 Plt Count 331 MPV 10.4 Immature Gran % (Auto) 0.4 Neut % (Auto) 70.9 Lymph % (Auto) 23.2 [place] % (Auto) 5.1 Eos % (Auto) 0.1 Baso % (Auto) 0.3 Lymph # (Auto) 2.5 [place] # (Auto) 0.6 Eos # (Auto) 0.0 Baso # (Auto) 0.0 Abs Immat Gran (auto) 0.04 H Absolute Neuts (auto) 7.7 Absolute Nucleated RBC 0.000 Nucleated RBC % (auto) 0.0 PT 12.2 INR 1.0 APTT 28.4 Sodium 140 Potassium 3.9 Chloride 107 Carbon Dioxide 21 L Anion Gap 16 BUN 6 L Creatinine 0.72 Estim Creat Clear Calc 148.8 Estimated GFR > 60 Random Glucose 85 Fasting Glucose Calcium 9.8 Magnesium 1.9 Total Bilirubin 0.3 Direct Bilirubin AST 16 ALT 20 Alkaline Phosphatase 51 Total Protein 7.5 Albumin 4.4 Triglycerides Cholesterol LDL Cholesterol, Calc HDL Cholesterol Vitamin B12 Folate TSH Free T4 Beta HCG, Quant < 2 Urine Color Yellow Urine Appearance Clear Urine pH 6.5 Ur Specific [place] <= 1.005 Urine Protein Negative Urine Glucose (UA) Negative Urine Ketones Negative Urine Blood Negative Urine Nitrite Negative Ur Leukocyte Esterase Negative Salicylates < 5.0 L Urine Opiates Screen Not Detected Ur Buprenorphine Scrn Not Detected Ur Oxycodone Screen Not Detected Urine Methadone Screen Not Detected Urine Fentanyl Screen Not Detected Acetaminophen 41 H 20 < 3 Ur Barbiturates Screen Not Detected Ur Phencyclidine Scrn Not Detected Ur Amphetamines Screen Not Detected U Benzodiazepines Scrn Not Detected Urine Cocaine Screen Not Detected U Marijuana (THC) Screen Not Detected Ethyl Alcohol < 10 02/01/24 02/02/24 13:20 11:56 WBC 6.5 RBC 4.12 L Hgb 12.8 Hct 37.8 MCV 91.7 MCH 31.1 MCHC 33.9 RDW 12.9 Plt Count 276 MPV 10.2 Immature Gran % (Auto) 0.2 Neut % (Auto) 49.2 Lymph % (Auto) 43.1 H [place] % (Auto) 6.5 Eos % (Auto) 0.5 Baso % (Auto) 0.5 Lymph # (Auto) 2.8 [place] # (Auto) 0.4 Eos # (Auto) 0.0 Baso # (Auto) 0.0 Abs Immat Gran (auto) 0.01 Absolute Neuts (auto) 3.2 Absolute Nucleated RBC 0.000 Nucleated RBC % (auto) 0.0 PT INR APTT Sodium 140 140 Potassium 3.6 3.7 Chloride 108 108 Carbon Dioxide 22 23 Anion Gap 14 13 BUN 3 L 6 L Creatinine 0.72 0.69 Estim Creat Clear Calc 148.8 154.9 Estimated GFR > 60 > 60 Random Glucose 89 Fasting Glucose 82 Calcium 9.7 9.6 Magnesium 2.1 Total Bilirubin 0.3 0.4 Direct Bilirubin 0.2 AST 14 17 ALT 18 19 Alkaline Phosphatase 48 48 Total Protein 7.3 7.1 Albumin 4.1 4.1 Triglycerides 72 Cholesterol 159 LDL Cholesterol, Calc 102 H HDL Cholesterol 43 Vitamin B12 320 Folate 12.1 TSH 1.01 Free T4 1.03 Beta HCG, Quant Urine Color Urine Appearance Urine pH Ur Specific [place] Urine Protein Urine Glucose (UA) Urine Ketones Urine Blood Urine Nitrite Ur Leukocyte Esterase Salicylates Urine Opiates Screen Ur Buprenorphine Scrn Ur Oxycodone Screen Urine Methadone Screen Urine Fentanyl Screen Acetaminophen Ur Barbiturates Screen Ur Phencyclidine Scrn Ur Amphetamines Screen U Benzodiazepines Scrn Urine Cocaine Screen U Marijuana (THC) Screen Ethyl Alcohol DS: Summary Hospital Course Hospital Course: Pt is a 23-year-old female admitted to on CV . She has a past medical history of autism spectrum, and depression presents to ED after taking approximately 25 pills of 500 mg acetaminophen at approximately 4pm yesterday 01/31/24. mother stated patient had argument with boyfriend (who is from [place] and they met online) and mother told BF to leave the house; mother stated when she walked back into saw open Tylenol bottle on the ground with a bottle of water. Patient then told mother she was trying to kill herself while taking Tylenol. Pt was medically cleared in Ed. She recieved activated charcoal. her tylenol level was 41 upon admissiona nd came down to 3 at 344 am on 01/31. EKG normal. Pt irritated that she is admitted; states she is not suicidal; wants to leave today. she signed Cv and then a 3 days notice; tells me she was not trying to kill herself; says she counted out how many tablets she was taking and did not intend to kill herself; when informed that she could have she states then it would be accidental. Pt difficult to engage. She is cooperative but does not think she needs to be in the hospital. she denies current SI or Hi; denies A/V hallucinations. During hospital course, cv/3day notice 15 min checks discharge planning with team Pt reports feeling fine today; guarded, difficult to engage during assessment. Pt stated, I'm not depressed or anxious. I got into an argument with my boyfriend, I don't know about what. The anxiety made me take the Tylenol. It was impulsive. I wanted my anxiety to stop and it's the only thing I had. I wasn't trying to kill myself . Pt reports she is open to starting medication for her impulsively and anxiety. Discussed risks/benefits of Guanfacine; educational handout given to patient. Pt denies SI/HI/VH/AH. Pt reports she will consider meeting with outpatient therapist. Start: Guanfacine 1mg PO bedtime Active on unit, social with peers. attending groups. Pt reports feeling good today; pt presents pleasant and cooperative. Pt stated, I had an argument with my boyfriend and he was going to go back home to [place]. I don't know exactly why I took the Tylenol. I want to see a therapist and will keep taking the medication . Pt expressed regret of taking Tylenol; she continues to state it was not a suicide attempt or a way to hurt myself . Pt reports she has plans of returning to college and pursuing an art degree. She denies SI/HI/VH/AH. Pt to be discharged home with outpatient appointments. Time spent discussing smoking cessation with patient: 3 to 10 minutes Status at Discharge Cognitive/behavioral status at discharge: Patient was interviewed prior to discharge and found to be fully oriented and without SI or HI. Patient has insight and demonstrates good judgment in terms of wanting to pursue treatment. Patient has a safety plan that includes presenting to the closest ER or calling 911 if feeling unsafe. Functional status at discharge: independent ambulation Overall status at discharge: patient is back to baseline Time Spent with Patient Time attestation: Total time managing care of this patient today _30___ minutes. Time spent: Less than 30 minutes Discharge Plan Discharge Anticipated Discharge Date/Time: 02/03/24 12:30 Patient Disposition: Home, Self-Care Discharge Diagnosis: [place], autism, depressive episode Referrals: [facility]- Meghana Winters (Therapy Intake) [Other] - 02/11/24 10:00 am ( Please arrive 15 mins prior to the intake appointment to complete intake paperwork. ) [facility]-Roopa Mark (Psych Provider) [Other] - 03/06/24 1:00 pm (Please arrive 15 minutes prior to appointment ) MELI Mark [Other] - 03/06/24 10:00 am Physician,None [Primary Care Provider] - 1 Week Discharge Medications: New guanfacine 1 mg Tablet Extended Release 24 Hr 1 mg PO BEDTIME 14 Days Qty: 14 1RF No Action No Known Home Meds Discharge Orders: Discharge Order (Routine); Ordered 02/03/24 Ordered By: Mora Galindo Diet: Regular diet Activity on Discharge: As tolerated Stand Alone Forms: Patient Portal Discharge page, Community Support Print Language: Sinhala Care Plan Goals: Maintain mood and safe behaviors Take medications as prescribed Practice coping skills Continue with outpatient providers and reach out to them as needed Health Concerns: Mood stability and behaviors Plan of Treatment: Follow up with your PCP, psychiatric provider and other outpatient providers regarding above concerns Take medications as prescribed Assessment: Patient was interviewed prior to discharge and found to be fully oriented and without SI or HI. Patient has insight and demonstrates good judgment in terms of wanting to pursue treatment. Patient has a safety plan that includes presenting to the closest ER or calling 911 if feeling unsafe. Patient Instructions: Adult Overdose (ED)
== END 2024-02-03 12:23 | disposition home or self-care (01) | DRG 754 ==
LOC: HO.ED 02-01 03:48 → HO.PADLT16 02-01 14:54
PROVIDERS: Physician Assistant; Admitting Provider Clinical Nurse Specialist Psychiatric/Mental Health; Emergency Provider Emergency Medicine Emergency Medical Services; Responsible Provider Registered Nurse; Visit Provider Psychiatry & Neurology Psychiatry
DX: F32.A Depression, unspecified (principal); F41.1 Generalized anxiety disorder; F84.0 Autistic disorder; T39.1X2A Poisoning by 4-Aminophenol derivatives, intentional self-harm, initial encounter
CPT/HCPCS: 36415; 80053; 80061; 80076; 80143; 80179; 80307; 81003; 82607; 82746; 83735; 84439; 84443; 84702; 85025; 85610; 85730; 92610; 93005; 99285; S9485

== ENCOUNTER → 2024-01-31 18:41 | Outpatient (BNV) | payer OTHER, SELFPAY | PROVIDERS: Emergency Provider Emergency Medicine Emergency Medical Services; Visit Provider Internal Medicine Cardiovascular Disease | DX: T50.901A Poisoning by unspecified drugs, medicaments and biological substances, accidental (unintentional), initial encounter (principal) | CPT/HCPCS: 93010 ==

== ENCOUNTER → 2024-02-01 02:00 | Outpatient (BNV) | payer OTHER, SELFPAY | PROVIDERS: Admitting Provider Clinical Nurse Specialist Psychiatric/Mental Health; Emergency Provider Emergency Medicine Emergency Medical Services; Visit Provider Internal Medicine Cardiovascular Disease | DX: T39.1X1A Poisoning by 4-Aminophenol derivatives, accidental (unintentional), initial encounter (principal) | CPT/HCPCS: 93010 ==

== ENCOUNTER → 2024-02-01 14:51 | Outpatient (BNV) | payer OTHER, SELFPAY | PROVIDERS: Admitting Provider Clinical Nurse Specialist Psychiatric/Mental Health; Emergency Provider Emergency Medicine Emergency Medical Services; Visit Provider Clinical Nurse Specialist Psychiatric/Mental Health | DX: F32.2 Major depressive disorder, single episode, severe without psychotic features (principal); T50.901A Poisoning by unspecified drugs, medicaments and biological substances, accidental (unintentional), initial encounter; F84.0 Autistic disorder | CPT/HCPCS: 90792; 99232; 99238 ==